=== PATIENT | female | born 1985 | race Two or more races ===

== ENCOUNTER 2022-09-19 07:15 | Outpatient (CLI) | payer OTHER ==
[~2022-09-19 07:15] MED LIST: HUMULIN 70100 UNIT/1; NOVOLOG100 U/M1
== END 2022-09-19 07:24 | disposition home or self-care (01) ==
LOC: LAB 07:15
DX: Z20.828 Contact with and (suspected) exposure to other viral communicable diseases (principal); Z20.818 Contact with and (suspected) exposure to other bacterial communicable diseases